=== PATIENT | female | born 1950 | race Two or more races ===

== ENCOUNTER 2019-05-20 08:50 | Outpatient (CLI) | payer OTHER ==
[~2019-05-20 08:50] MED LIST: DOLOGESIC CAPLE1 TAB PO; LEVAQUIN500 MG PO
== END 2019-05-20 11:25 | disposition home or self-care (01) ==
LOC: NUCLEAR 08:50
DX: C71.8 Malignant neoplasm of overlapping sites of brain (principal)
CPT/HCPCS: 78815; A9552

== ENCOUNTER → 2020-12-30 | Outpatient (CLI) | payer OTHER | END | disposition home or self-care (01) | LOC: NUCLEAR 08:40 | PROVIDERS: ATTEND Internal Medicine | DX: M85.80 Other specified disorders of bone density and structure, unspecified site (principal); M81.0 Age-related osteoporosis without current pathological fracture ==

== ENCOUNTER → 2020-12-31 | Outpatient (CLI) | payer OTHER | END | disposition home or self-care (01) | LOC: TOM 08:26 | PROVIDERS: ATTEND Internal Medicine | DX: M75.21 Bicipital tendinitis, right shoulder (principal); R92.1 Mammographic calcification found on diagnostic imaging of breast; Z12.31 Encounter for screening mammogram for malignant neoplasm of breast; Z80.8 Family history of malignant neoplasm of other organs or systems ==

== ENCOUNTER 2021-11-15 10:38 | Outpatient (CLI) | payer OTHER | END 2021-11-15 10:46 | disposition home or self-care (01) | LOC: MAMO-SONO 10:38 | PROVIDERS: ATTEND Internal Medicine | DX: Z12.31 Encounter for screening mammogram for malignant neoplasm of breast (principal); N60.49 Mammary duct ectasia of unspecified breast ==

== ENCOUNTER 2024-04-03 13:49 | Outpatient (CLI) | payer OTHER | END 2024-04-03 13:50 | disposition home or self-care (01) | LOC: NUCLEAR 13:49 | PROVIDERS: ATTEND Internal Medicine Rheumatology | DX: M81.0 Age-related osteoporosis without current pathological fracture (principal) ==

== ENCOUNTER 2024-12-05 07:02 | Outpatient (CLI) | payer OTHER | END 2024-12-05 07:03 | disposition home or self-care (01) | LOC: NUCLEAR 07:02 | PROVIDERS: ATTEND Neuromusculoskeletal Medicine & OMM | DX: G30.9 Alzheimer's disease, unspecified (principal); G31.09 Other frontotemporal neurocognitive disorder | CPT/HCPCS: 78814; A9552 ==